=== PATIENT | female | born 1990 | race Two or more races ===

== ENCOUNTER 2020-03-08 22:28 | Emergency (ER) | payer MEDICAID ==
[~2020-03-08] VITALS: Ht 162.6 cm; Wt 90.9 kg
[2020-03-08] MEDS ORDERED: ACETAMINOPHEN 325 MG TABLET PO ONE (23:30)
[2020-03-09 00:26] VITALS: BP 132/75
== END 2020-03-09 00:30 | disposition home or self-care (01) ==
LOC: EMS 22:28
DX: M25.511 Pain in right shoulder (principal)